=== PATIENT | male | born 1980 | race Caucasian/White ===

== ENCOUNTER 2024-06-01 11:01 | Emergency (ER) | payer OTHER, SELFPAY ==
[2024-06-01 11:03] VITALS: BP 126/87; PULSE 93; RESP 18; TEMP 36.7; O2SAT 96
--- OUTSIDE RECORDS SUMMARY | 2024-06-01 11:03 | XMS_ITS | Encounter Summary ---
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
--- OUTSIDE RECORDS SUMMARY | 2024-06-01 11:03 | XMS_ITS | Clinical Summary ---
Author Organization 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 Gender Identity Not on file Sexual Orientation Not on file Plan of Treatment Health Maintenance Due Date Last Done Comments Annual Physical 11/02/1983 Hepatitis C 1998 DTaP, Tdap and Td Vaccines ( 1 - Tdap) 11/02/1999 Hepatitis B Vaccines (1 of 3 - 19+ 3-dose series) 11/02/1999 COVID-19 Vaccine (2023-2 5 season) 2023 Influenza Adult (#1) 2024 HPV Vaccines Aged Out No longer eligi ble based on patient's age to complete this topic Meningococcal B Vaccine Aged Out No l onger eligible based on patient's age to complete this topic Meningococcal Vaccine Aged Out No manolo cyndi eligible based on patient's age to complete this topic Pneumococcal Vaccine: Pediat rics (0 to 5 Years) and At-Risk Patients (6 to 64 Years) Aged Out No longer eligible b ased on patient's age to complete this topic RSV Immunizations Under 20 Months Aged Out No longer eligible based on patient's age to complete this topic Additional Health Concerns Infection Onset Date Last Indicated MRSA 04/30/2018 04/30/2018 Care Teams Manuscripts Curator Relationship Specialty Start Date End Date None, Provider, PCP - General 11/14/18
--- NOTE | 2024-06-01 11:06 | ED.MALEGU ---
HPI - Male Genitourinary General Chief complaint: Urogenital-Male Stated complaint: swollen testicle,& pain in groin & flank Time Seen by Provider: 06/01/24 11:02 Source: patient Mode of arrival: ambulatory Limitations: no limitations History of Present Illness HPI Narrative: 43-year-old male with no significant past medical history presents to the ED with a 1 week history of -- left testicular swelling. no history of trauma. No change in sexual partners. -- pain in the left flank and groin. No radiation of the pain. No dysuria or hematuria. MD Complaint: testicle pain and testicle swelling Onset (ago): day(s) ( Seven days) Duration: constant Location: left testicle Quality: aching Exacerbating factors: movement Associated symptoms: Reports other ( left flank pain) Related Data Sexually active: Yes Allergies Allergy/AdvReac Type Severity Reaction Status Date / Time Sulfa (Sulfonamide Allergy Mild rash Verified 06/01/24 11:07 Antibiotics) Review of Systems Review of Systems: All systems reviewed & are unremarkable except as noted in HPI and below Constitutional: Constitutional: Reports as per HPI and Reports no additional constitutional complaints Eyes: Eyes: Reports as per HPI and Reports no additional eye complaints ENT: Reports system reviewed and no additional complaints, except as documented and Reports as per HPI Cardiovascular: Cardiovascular: Reports as per HPI and Reports no additional cardiovascular complaints Respiratory: Respiratory: Reports as per HPI and Reports no additional respiratory complaints Gastrointestinal: Gastrointestinal: Reports as per HPI and Reports no additional gastrointestinal complaints Genitourinary: Genitourinary: Reports no additional male genitourinary complaints and Reports as per HPI Comments: left testicular pain and swelling. Left groin and flank pain Musculoskeletal: Musculoskeletal: Reports no additional musculoskeletal complaints Integumentary/Breasts: Skin/Breast: Reports system reviewed and no additional complaints, except as docu and Reports as per HPI Neurologic: Reports system reviewed and no additional complaints, except as documented and Reports as per HPI Psychiatric: Psychiatric: Reports no additional psychiatric complaints and Reports as per HPI Endocrine: Endocrine: Reports no additional endocrine complaints and Reports as per HPI Hematologic/Lymphatic: Hematologic/Lymphatic: Reports no additional hematologic/lymphatic complaints and Reports as per HPI Allergic/Immunologic: Allergic/Immunologic: Reports no additional allergic/immunologic complaints and Reports as per HPI [facility] Past Medical History Medical History Obesity (BMI 30-39.9) Kidney stones Social History Social History Smoking status: Former smoker Tobacco type: cigarettes Alcohol intake: current Alcohol use details: 2 times a month Substance use: never Substance use type: does not use Living arrangements: with family Additional living arrangements comments: , has 2 children Occupation/Education: occupation Additional occupation/education comments: Works for [employer] Gender identity (if verbalized by the patient): Male Exam Narrative: afebrile Const: Limitations: no limitations HENMT: Head: normal to inspection Face/Nose/Sinus: Normal external nose present Face and sinus: normal facial exam Mouth: Yes Normal oral and palatal mucosa present Throat: posterior oropharynx normal Eyes: Conjunctivae: conjunctivae normal Pupils: Equal, round and reactive pupils present EOM: EOMs intact bilaterally Direct Ophthalmoscopy: no photophobia Neck: Neck: normal visual inspection, no lymphadenopathy and no meningeal signs Chest: Chest palpation & inspection: normal inspection of the chest Resp: Effort & Inspection: normal respiratory effort Auscultation: clear to auscultation bilaterally Cardio: Rate: regular rate Rhythm: regular rhythm GI: GI Palp: Yes Soft to palpation Auscultation: normal bowel sounds : General: Yes no CVA tenderness Other: pain on elevation of the left testicle. Bilateral cremasteric reflexes present Back/Spine/Pelvis: Back: no CVA tenderness Skin: General skin exam: normal color Rashes: no rashes Wounds: no wounds Neuro: General: patient oriented x3, moves all extremities, no meningeal signs and no focal motor deficits Cranial nerves: Yes CN's II-XII intact bilaterally Speech: normal speech Gait exam (Neuro): Normal gait present Extrem: General: normal to inspection and no clubbing, cyanosis or edema Psych: Mental Status: mental status grossly normal Affect: normal affect Attitude: cooperative Course Course Emergency Course: left flank pain left testicular pain and swelling-- the patient does not want to be transferred to [facility] for an emergent ultrasound/Doppler to rule out testicular torsion. The patient wants to get his ultrasound/ Doppler as an outpatient tomorrow morning. his symptoms have been developing over the past 1 week. patient stated that he is not sexually active. Will treat with Cipro Vital Signs Vital signs: Vital Signs Temperature 36.7 C 06/01/24 11:03 Pulse Rate 93 06/01/24 11:03 Respiratory Rate 18 06/01/24 11:03 Blood Pressure 126/87 06/01/24 11:03 Pulse Oximetry 96 06/01/24 11:03 Oxygen Delivery Room Air 06/01/24 11:03 Temperature 36.7 C 06/01/24 11:03 Pulse Rate 93 06/01/24 11:03 Respiratory Rate 18 06/01/24 11:03 Blood Pressure 126/87 06/01/24 11:03 Pulse Oximetry 96 06/01/24 11:03 Oxygen Delivery Room Air 06/01/24 11:03 MDM - Male Genitourinary MDM Narrative Medical decision making narrative: Testicular pain and swelling possibly secondary to epididymo-orchitis. to rule out testicular torsion left flank pain-- urine is negative and less likely to be a kidney stone Differential Diagnosis Differential diagnosis: Likely urethritis Lab Data Attestation: I reviewed the patient's lab results. 06/01/24 11:38 06/01/24 11:38 Labs: Lab Results 06/01/24 06/01/24 Range/Units 11:07 11:38 WBC 15.0 H (4.8-10.8) K/mm3 RBC 5.49 (4.70-6.10) M/mm3 Hgb 15.5 (14.0-18.0) g/dL Hct 47.1 (40.0-54.0) % MCV 85.8 (78.0-102.0) fL MCH 28.2 (27.0-31.0) pg MCHC 32.9 (32-36) g/dL RDW 12.4 (11.6-14.4) % Plt Count 313 (150-420) K/mm3 MPV 10.2 (8.7-11.0) fl Immature Gran % (Auto) 0.8 H (0.0-0.0) % Neut % (Auto) 72.3 H (50.0-70.0) % Lymph % (Auto) 16.9 L (18.0-42.0) % [place] % (Auto) 8.0 (2.0-11.0) % Eos % (Auto) 1.5 (1.0-6.0) % Baso % (Auto) 0.5 (0.0-1.0) % Lymph # (Auto) 2.54 (1.10-4.50) K/mm3 [place] # (Auto) 1.20 H (0.10-0.90) K/mm3 Eos # (Auto) 0.22 (0.02-0.50) K/mm3 Baso # (Auto) 0.08 (0.00-0.10) K/mm3 Abs Immat Gran (auto) 0.12 H (0.00-0.00) K/mm3 Absolute Neuts (auto) 10.84 H (1.70-7.20) K/mm3 Absolute Nucleated RBC 0.00 (0.00-0.00) K/mm3 Nucleated RBC % 0.0 (0-0.0) % Sodium 139 (136-145) mmol/L Potassium 4.3 (3.5-5.1) mmol/L Chloride 102 (98-108) mmol/L Carbon Dioxide 26 (21-32) mmol/L Anion Gap 11 (4-12) mmol/L BUN 18 (7-18) mg/dL Creatinine 0.94 (0.70-1.30) mg/dL Estim Creat Clear Calc 119 ml/min Estimated GFR > 60 (59 - ) Glucose 93 (70-99) mg/dL Calculated Osmolality 289 (285-295) mOsm/kg Lactic Acid 0.7 (0.4-2.0) mmol/L Calcium 9.0 (8.5-10.1) mg/dL Total Bilirubin 0.4 (0.00-1.00) mg/dL AST 20 (15-37) U/L ALT 45 (16-63) U/L Alkaline Phosphatase 87 (46-116) U/L Total Protein 7.5 (6.4-8.2) g/dL Albumin 3.5 (3.4-5.0) g/dL Lipase 36 (16-77) U/L Urine Color Light yellow (Yellow) Urine Appearance Clear (Clear) Urine pH 6.5 (5.0-8.0) Ur Specific [place] 1.020 (1.010-1.020) Urine Protein Negative (Negative) Urine Glucose (UA) Negative (Negative) Urine Ketones Negative (Negative) Ur Blood (Man) 1+ H (Negative) Urine Nitrate Negative (Negative) Urine Bilirubin Negative (Negative) Urine Urobilinogen 0.2 (0.2-1.0) mg/dL Leukocyte Esterase Rfl Negative (Negative) JACK/UL Urine RBC None seen (0-2) /hpf Amorphous Sediment Few H (None) Discharge Plan Discharge Clinical Impression: Swelling of testicle Patient Disposition: Home, Self-Care Condition: Stable Instructions: Antibiotic Form, Testicle Pain (ED) Additional Instructions: advised to come for a testicular ultrasound tomorrow morning. Patient Language: Haitian Prescriptions: New ciprofloxacin HCl [Cipro] 500 mg tablet 500 mg PO Q12H Qty: 20 0RF Follow-up/Referrals: UNKNOWN,DOCTOR [Primary Care Provider] - Time of Disposition: 12:24
[2024-06-01 11:20] LABS: Add Urine Microscopic? YES; Appearance Urine Clear (Clear); Bilirubin Urine Negative (Negative); Blood Urine 1+ (Negative); Color Urine Light Yellow (Yellow); Glucose Urine UA Negative (Negative); Ketones Urine Negative (Negative); Leukocyte Esterase Ur Negative LEU/UL (Negative); Nitrate Urine Negative (Negative); Protein Urine Negative (Negative); Urobilinogen Urine 0.2 mg/dL (0.2-1.0); pH Urine 6.5 (5.0-8.0)
--- OUTSIDE RECORDS SUMMARY | 2024-06-01 11:26 | XMS_ITS | Clinical Summary ---
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
--- OUTSIDE RECORDS SUMMARY | 2024-06-01 11:26 | XMS_ITS | Encounter Summary ---
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
[2024-06-01 11:28] LABS: Amorphous Sediment Urine Few; RBC Urine None seen /hpf (0-2)
[2024-06-01 11:41] LABS: Basophils Absolute Auto 0.08 K/mm3 (0.00-0.10); Basophils Percent Auto 0.5 % (0.0-1.0); Eosinophils Absolute Auto 0.22 K/mm3 (0.02-0.50); Eosinophils Percent Auto 1.5 % (1.0-6.0); Hematocrit 47.1 % (40.0-54.0); Hemoglobin 15.5 g/dL (14.0-18.0); Immature Granulocyte Absolute 0.12 K/mm3 (0.00-0.00); Immature Granulocyte Percent A 0.8 % (0.0-0.0); Lymphocytes Absolute Auto 2.54 K/mm3 (1.10-4.50); Lymphocytes Percent Auto 16.9 % (18.0-42.0); Mean Corpuscular HGB Conc 32.9 g/dL (32-36); Mean Corpuscular Hemoglobin 28.2 pg (27.0-31.0); Mean Corpuscular Volume 85.8 fL (78.0-102.0); Mean Platelet Volume 10.2 fl (8.7-11.0); Neutrophils Absolute Auto 10.84 K/mm3 (1.70-7.20); Neutrophils Percent Auto 72.3 % (50.0-70.0); Platelet Count Result 313 K/mm3 (150-420); Red Blood Count 5.49 M/mm3 (4.70-6.10); Red Cell Distribution Width 12.4 % (11.6-14.4)
[2024-06-01 12:17] LABS: Alanine Aminotransferase 45 U/L (16-63); Albumin Level 3.5 g/dL (3.4-5.0); Alkaline Phosphatase 87 U/L (46-116); Anion Gap 11 mmol/L (4-12); Aspartate Amino Transferase 20 U/L (15-37); Bilirubin,Total 0.4 mg/dL (0.00-1.00); Blood Urea Nitrogen 18 mg/dL (7-18); Carbon Dioxide 26 mmol/L (21-32); Chloride 102 mmol/L (98-108); Estimated CRCL calculation 119 ml/min; Estimated Glomerular Filt Rate > 60; Glucose 93 mg/dL (70-99); Lipase 36 U/L (16-77); Osmolality Calculated 289 mOsm/kg (285-295); Potassium 4.3 mmol/L (3.5-5.1); Sodium 139 mmol/L (136-145); Total Protein 7.5 g/dL (6.4-8.2)
[2024-06-01 12:20] LABS: Lactic Acid Reflex 0.7 mmol/L (0.4-2.0)
[2024-06-01 12:28] VITALS: BP 112/82; PULSE 86; RESP 16; TEMP 37.1; O2SAT 96
== END 2024-06-01 12:37 | disposition home or self-care (01) ==
PROVIDERS: Emergency Provider Internal Medicine Critical Care Medicine
DX: N50.89 Other specified disorders of the male genital organs (principal); Z87.891 Personal history of nicotine dependence
CPT/HCPCS: 36415; 80053; 81001; 83605; 83690; 85025; 99283

== ENCOUNTER 2024-06-02 12:02 | Outpatient (CLI) | payer OTHER, SELFPAY ==
--- NOTE | ~2024-06-02 | US_ITS ---
EXAMINATION: US scrotum doppler DATE: 06/02/2024 12:29 INDICATION: Left testicular swelling. TECHNIQUE: Grayscale and Doppler ultrasound images of the testes were obtained. COMPARISON: None. FINDINGS: The right testis measures 4.2 x 2.4 x 2.2 cm. The left testis measures 4.3 x 2.3 x 2.3 cm. There is increased vascular flow to left testis. The right epididymis is normal with normal vascular flow. The left epididymis demonstrates increased vascular flow. There is a large left-sided septated hydrocele. IMPRESSION: 1. Left-sided epididymoorchitis. 2. Large left-sided septated hydrocele. Reviewed, dictated and finalized at location A. ANICAL TECHNOLOGIST
--- OUTSIDE RECORDS SUMMARY | 2024-06-02 14:40 | XMS_ITS | Clinical Summary ---
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
--- OUTSIDE RECORDS SUMMARY | 2024-06-02 14:40 | XMS_ITS | Encounter Summary ---
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
== END 2024-06-02 12:03 | disposition home or self-care (01) ==
LOC: CHSIMG 12:04
PROVIDERS: PCP Internal Medicine; Visit Provider Internal Medicine Critical Care Medicine
DX: N50.89 Other specified disorders of the male genital organs (principal); N43.3 Hydrocele, unspecified; N45.3 Epididymo-orchitis
CPT/HCPCS: 76870; 93976